=== PATIENT | female | born 1985 | race Caucasian/White ===

== ENCOUNTER 2016-09-20 12:31 | Emergency (ER) | payer MEDICAID, OTHER ==
[~2016-09-20] VITALS: Ht 162.6 cm; Wt 60.0 kg
[2016-09-20] MEDS ORDERED: KETOROLAC 60MG/2ML VIAL IM ONE (13:45)
[2016-09-20] MEDS ORDERED: METHOCARBAMOL 500MG TABLET PO ONE (13:45)
[2016-09-20 13:49] VITALS: BP 142/81
== END 2016-09-20 14:23 | disposition home or self-care (01) ==
LOC: ER 13:24
DX: S39.012A Strain of muscle, fascia and tendon of lower back, initial encounter (principal); G89.29 Other chronic pain; V43.62XA Car passenger injured in collision with other type car in traffic accident, initial encounter; Y92.488 Other paved roadways as the place of occurrence of the external cause
CPT/HCPCS: 96372; 99283; J1885

== ENCOUNTER 2016-10-04 18:05 | Emergency (ER) | payer MEDICAID ==
[~2016-10-04] VITALS: Ht 157.5 cm; Wt 75.0 kg
[2016-10-04] MEDS ORDERED: IBUPROFEN 800MG TABLET PO ONE (20:15)
[2016-10-04 20:58] VITALS: BP 134/87
== END 2016-10-04 21:36 | disposition home or self-care (01) ==
LOC: ER 20:41
DX: S60.222A Contusion of left hand, initial encounter (principal); F17.210 Nicotine dependence, cigarettes, uncomplicated; W10.9XXA Fall (on) (from) unspecified stairs and steps, initial encounter; Y93.01 Activity, walking, marching and hiking; Y92.9 Unspecified place or not applicable; Y99.8 Other external cause status
CPT/HCPCS: 73130; 81025; 99284